=== PATIENT | female | born 1955 | race Caucasian/White ===

== ENCOUNTER 2021-08-27 18:42 | Emergency (ER) | payer OTHER, MEDICARE ==
[~2021-08-27 18:42] MED LIST: Iopamidol 370 76% 100 ML VIAL ONE
[2021-08-27] MEDS ORDERED: Sodium Chloride 0.9% 500 ML ONE ×2 (19:30→21:46)
[2021-08-27 20:06] LABS: ALT (SGPT) 20 U/L (8-55); AST (SGOT) 16 U/L (5-34); Alkaline Phosphatase 74 U/L (40-110); Anion Gap 17 mmol/L (10-20); BUN (Urea Nitrogen) 18 mg/dL (9.8-20.1); Bilirubin, Total 0.2 mg/dL (0.2-1.2); Calc. Creatinine Clearance 0 mL/min (70-130); Calcium 9.9 mg/dL (7.8-10.44); Carbon Dioxide 22 mmol/L (23-31); Chloride 107 mmol/L (98-107); Globulin 3.5 g/dL (2.4-3.5); Glucose 174 mg/dL (80-115); Lipase 25 U/L (8-78); Potassium 4.5 mmol/L (3.5-5.1); Protein, Total 7.5 g/dL (5.8-8.1); Sodium 141 mmol/L (136-145)
[2021-08-27 20:32] LABS: Hemoglobin 15.7 g/dL (12.0-16.0); Mean Corpuscular HGB CONC 31.1 g/dL (32.0-36.0); Mean Corpuscular Hemoglobin 29.9 pg (27.0-31.0); Mean Platelet Volume 7.8 fL (7.4-10.4); Platelet Count 296 thou/uL (130-400); RBC Distribution Width 13.4 % (11.5-14.5); Red Blood Cell (RBC) Count 5.26 mill/uL (4.20-5.40); White Blood Cell (WBC) Count 18.5 thou/uL (4.8-10.8)
[2021-08-27 20:33] LABS: Manual Diff?? YES
[2021-08-27 20:34] LABS: Band 1 % (5-11); Lymphocytes 14 % (21-51); Monocytes 2 % (0-10); Neutrophil 93 % (42-75)
[2021-08-27 20:35] LABS: MDiff Complete? YES; Platelet Morphology Comment Appears Adequate; RBC Morphology Normal
[2021-08-27 22:02] LABS: Bilirubin Negative (Negative); Blood, Urine Trace (Negative); Clarity Clear (Clear); Glucose, Urine (Dipstick) Negative (Negative); Ketone, Urine Negative (Negative); Leukocyte Negative (Negative); Nitrite Negative (Negative); Protein, Urine (Dipstick) Negative (Neg-Trace); Urobilinogen 0.2 mg/dL (Less than 2); pH, Urine 5.5 (5.0-9.0)
[2021-08-27 22:09] LABS: Bacteria/HPF None Seen HPF (None Seen); RBC/HPF 0-3 HPF (0-3); Specific Gravity, Urine 1.024 (1.002-1.036); Squamous Epithelial 0-3 HPF (0-3); WBC/HPF 0-3 HPF (0-3)
[2021-08-27 22:10] LABS: Mucous/LPF 1+ LPF (<2+)
[2021-08-27 22:56] LABS: Lactic Acid 2.3 mmol/L (0.5-2.2)
[2021-08-27] MEDS ORDERED: Sodium Chloride 0.9% 1,000 ML ONE (23:06)
[2021-08-27] MEDS ORDERED: Ondansetron PF 4 MG/2 ML Vial ONE (23:06)
[2021-08-28] MEDS ORDERED: Levalbuterol HCl 1.25 MG/0.5 ML NEB ONE (00:26)
[2021-08-28] MEDS ORDERED: Piperacillin/Tazobactam 4.5 GM VIAL ONE (01:32)
[2021-08-28] MEDS ORDERED: Sodium Chloride 0.9% 100 ML ONE (01:33)
[2021-08-28] MEDS ORDERED: Ondansetron PF 4 MG/2 ML Vial ONE ×2 (01:46→01:49)
[2021-08-28] MEDS ORDERED: Sodium Chloride 0.9% 250 ML 500 ML ONE (02:02)
[2021-08-28] MEDS ORDERED: Sodium Chloride 0.9% 1,000 ML ONE ×2 (03:42→13:55)
[2021-08-28 05:03] LABS: SARS-CoV-2 NAA Rapid Test Not Detected (NotDetected)
[2021-08-28] MEDS ORDERED: Levalbuterol HCl 0.63 MG/3 ML NEB ONE ×2 (11:00→15:09)
== END 2021-08-28 16:18 | disposition short-term general hospital (02) ==
LOC: NAV ERS 18:42
DX: E86.0 Dehydration (principal); D72.829 Elevated white blood cell count, unspecified; F17.210 Nicotine dependence, cigarettes, uncomplicated; E11.9 Type 2 diabetes mellitus without complications; J44.9 Chronic obstructive pulmonary disease, unspecified; Z79.899 Other long term (current) drug therapy
CPT/HCPCS: 74022; 74177; 80053; 81003; 81015; 83605; 83690; 85025; 87324; 87449; 96361; 96365; 96366; 96367; 96375; 96376; J2405; J2543; J3370; J3490; J7030; J7050; J7612; J7614; Q9967; U0002

== ENCOUNTER 2023-10-04 15:44 | Emergency (ER) | payer MEDICARE, OTHER ==
[2023-10-04] MEDS ORDERED: Fleet Saline Enema 133 ML BOT ONE (16:19)
== END 2023-10-04 17:14 | disposition home or self-care (01) ==
LOC: NAV ERS 15:44
DX: K59.00 Constipation, unspecified (principal); J44.9 Chronic obstructive pulmonary disease, unspecified; E11.9 Type 2 diabetes mellitus without complications; F17.210 Nicotine dependence, cigarettes, uncomplicated; Z79.4 Long term (current) use of insulin; Z79.899 Other long term (current) drug therapy
CPT/HCPCS: 99283